=== PATIENT | male | born 1975 ===

== ENCOUNTER → 2017-05-19 | Outpatient (REF) | LOC: WSOH 13:54 | DX: Z02.89 Encounter for other administrative examinations (principal) ==

== ENCOUNTER → 2017-05-19 | Outpatient (REF) | LOC: WSOH 13:42 | DX: Z02.89 Encounter for other administrative examinations (principal) ==

== ENCOUNTER → 2017-05-24 | Outpatient (REF) | LOC: WSOH 13:13 | DX: Z11.1 Encounter for screening for respiratory tuberculosis (principal) ==